=== PATIENT | male | born 1980 | race Hispanic/Latino ===

== ENCOUNTER 2019-02-19 20:22 | Emergency (ER) | payer SELFPAY ==
[~2019-02-19] VITALS: Ht 167.6 cm; Wt 72.6 kg
[2019-02-19] MEDS ORDERED: TETANUS/DIPHTHERIA TOX ADULT 0.5 ML SYR IM ONE (20:45)
--- NOTE | 2019-02-19 22:27 | Diagnostic Imaging Report ---
HAND 3+ VIEWS LEFT HISTORY: Pain. COMPARISON: None available. FINDINGS: Bones: No acute displaced fracture. Chronic appearing focal osseous defect of the third digit distal tuft. Osseous alignment is within normal limits. Joints: The joint spaces are well-maintained. Soft tissues: Impaled metallic foreign body through the mid left palm. IMPRESSION: Impaled metallic foreign body through the mid left palm without associated osseous injury. Chronic appearing focal osseous defect of the third digit distal tuft, possibly from remote injury. Signed by: Bryce Ward DO on 02/19/2019 10:23 PM
[2019-02-19] MEDS ORDERED: MORPHINE SULFATE INJ 4 MG/ML INJ 1ML IV STA (22:46)
[2019-02-19] MEDS ORDERED: ONDANSETRON HCL INJ 2MG/ML 2ML 2 MG/ML VIAL IV STA (22:46)
--- NOTE | 2019-02-19 22:57 | NUR ---
PT STATES HE DOES NOT WANT TO BE TRANSFERRED, STATES HE WANTS TO LEAVE IN HIS OWN VEHICLE AND GO TO ANOTHER HOSPITAL. ADVISED AGAINST LEAVING, INST HE WILL NEED TO SEE SPECIALIST TO HAVE NAIL REMOVED FROM HAND, VERBALIZED UNDERSTANDING. DR GAYTAN AWARE AND TO ROOM TO SPEAK WITH PATIENT AND FAMILY Addendum: 02/19/19 at [id number] by BALJIT PT ALSO STATES HE DOES NOT WANT IV OR MEDICATIONS AT THIS TIME, WILL DISCUSS WITH FAMILY AND THEN ERP BEFORE MAKING FURTHER DECISIONS
[2019-02-19] MEDS ORDERED: CEFAZOLIN SOD 1 GM/NS 50ML 50 ML IV ONE (23:00)
[2019-02-19] MEDS ORDERED: CEPHALEXIN 500 MG CAP PO SCH (23:15)
[2019-02-19] MEDS ORDERED: HYDROCODONE/APAP 10MG-325MG TAB PO ONE (23:15)
--- NOTE | 2019-02-19 23:17 | NUR ---
DR GAYTAN AND NELLI Garay DRUM ATTENDANT TO ROOM TO SPEAK WITH PATIENT AND FAMILY, PT SIGNED OUT AMA, MEDICATED PER ORDERS. COPY OF CD GIVEN TO PATIENT. AWAKE ALERT SKIN W/D RESP NONLAB. NAD NOTED.
[2019-02-19] MEDS ORDERED: CEPHALEXIN 500 MG CAP ONE (23:18)
[2019-02-19] MEDS ORDERED: HYDROCODONE/APAP 10MG-325MG TAB ONE (23:18)
== END 2019-02-19 23:21 | disposition left against medical advice (07) ==
LOC: ER 20:22
DX: S61.422A Laceration with foreign body of left hand, initial encounter (principal); W29.4XXA Contact with nail gun, initial encounter
CPT/HCPCS: 90471; 90714; 99283